=== PATIENT | male | born 1975 | race Asian ===

== ENCOUNTER 2019-03-24 04:13 | Emergency (ER) | payer OTHER ==
[~2019-03-24] VITALS: Ht 175.3 cm; Wt 90.3 kg
[2019-03-24 04:19] VITALS: Ht 175.3 cm; Wt 90.3 kg
[2019-03-24 05:16] VITALS: BP 113/78
== END 2019-03-24 05:16 | disposition home or self-care (01) ==
LOC: ED 04:13
DX: L29.9 Pruritus, unspecified (principal); Z88.8 Allergy status to other drugs, medicaments and biological substances